=== PATIENT | female | born 1955 | race Caucasian/White ===

== ENCOUNTER 2017-07-14 09:24 | Emergency (ER) | payer OTHER ==
[~2017-07-14] VITALS: Ht 160 cm; Wt 98.9 kg
[~2017-07-14 09:24] MED LIST: ANASTROZOLE PO; ANTIVERT25 M1 PO; ATENOLOL50 MG; PENTOXIL400 MG; STERAPRED5 MG/DOSE-; TESSALON PERLE100 MG PO; TUSSI PRES-B L120 M1 PO
[2017-07-14] MEDS ORDERED: SINGULAIR10 MG (09:36)
[2017-07-14] MEDS ORDERED: PRAVASTATIN SOD40 MG (09:37)
[2017-07-14] MEDS ORDERED: OMEPRAZOLE40 MG (09:37)
[2017-07-14] MEDS ORDERED: COZAAR100 MG (09:37)
[2017-07-14] MEDS ORDERED: THEOCHRON300 MG (09:38)
== END 2017-07-14 18:22 | disposition home or self-care (01) ==
LOC: ER 09:24
DX: J06.9 Acute upper respiratory infection, unspecified (principal); J01.00 Acute maxillary sinusitis, unspecified; J32.0 Chronic maxillary sinusitis; J11.1 Influenza due to unidentified influenza virus with other respiratory manifestations

== ENCOUNTER 2018-12-23 18:32 | Emergency (ER) | payer OTHER ==
[~2018-12-23] VITALS: Ht 160 cm; Wt 96.6 kg
[~2018-12-23 18:32] MED LIST changes: +COZAAR100 MG; +OMEPRAZOLE40 MG; +PRAVASTATIN SOD40 MG; +SINGULAIR10 MG; +THEOCHRON300 MG
[2018-12-23] MEDS ORDERED: LISINOPRIL20 MG (18:45)
== END 2018-12-23 22:15 | disposition home or self-care (01) ==
LOC: ER 18:32
DX: J06.9 Acute upper respiratory infection, unspecified (principal)